=== PATIENT | female | born 1960 | race Caucasian/White ===

== ENCOUNTER 2016-10-22 05:31 | Emergency (ER) | payer MEDICARE ==
[~2016-10-22] VITALS: Ht 154.9 cm; Wt 61.4 kg
[~2016-10-22 05:31] MED LIST: ALBU8.5H2 INHALATION; CHOL10008 PO; CYAN500 PO; FLUT16SP NS; LORA0.5T PO; PARO20TA57 PO; PREG150C PO; TRAM50TA2 PO
[2016-10-22 05:33] VITALS: BP 119/88; PULSE 60; RESP 16; O2SAT 98
--- NOTE | 2016-10-22 06:20 | ED.REPORT ---
HPI-Abd Pain F 40 and Over Date of Service October 22, 2016 ED Provider: Azael Christiansen DO The pt is a 56 y/o female w/ a hx of hernia repairs presenting to the ED complaining of abdominal pain. She describes the pain as sharp and "pulling" and as someone "stabbing a hot knife and ripping down". The pt is also experiencing chest pain and dysuria. She also had a episode of syncope a month ago and was told by the ER she had high sodium levels and a HR of 47. 6 months ago her dog tripped her which caused an abscess of her hernia, which she was given antibiotics for. She also reports a parathyroid cyst which she states has caused hypercalcemia in the past. Denies nausea and vomiting. Nursing Notes Stated Complaint: ABDOMINAL PAIN Chief Complaint: Female Abdominal Pain Nursing Notes Reviewed: Yes Allergies: Coded Allergies: codeine (Verified Allergy, Intermediate, 05/10/15) latex (Verified Allergy, Intermediate, hives, 05/10/15) Scheduled Albuterol HFA (Proair HFA) 8.5 Gm Hfa.aer.ad 2 PUFFS INHALATION Q4H Cholecalciferol (Vitamin D3) (Vitamin D3) 1,000 Unit Tab.chew 1,000 UNIT PO DAILY Cyanocobalamin (Vitamin B12) 500 Mcg Tablet 1,000 MCG PO DAILY Fluticasone Propionate (Fluticasone Propionate Nasal) 16 Gm [place].susp 2 SPRAY NS BID Paroxetine (Paxil) 20 Mg Tablet 20 MG PO HS Pregabalin (Lyrica) 150 Mg Capsule 150 MG PO HS Sulfamethoxazole/Trimeth 800-160 mg (Bactrim DS 800-160 mg) 1 Each Tablet 1 TABLET PO BID Scheduled PRN Lorazepam (Lorazepam) 0.5 Mg Tablet 0.5 MG PO TID PRN PRN For Anxiety Naproxen (Naproxen) 500 Mg Tab 500 MG PO BID PRN PRN For Pain Tramadol (Tramadol) 50 Mg Tablet 50 MG PO BID PRN PRN For Pain General Time Seen by MD: 06:20 Chief Complaint Abdominal pain Hx Obtained From: Patient Arrived By: Walk-in Sudden in Onset?: Yes Location: : RLQ Quality: Painful Severity: Current: Mild Severity: Maximum: Mild Recent Healthcare: No recent doctor visit, No recent hospitalization Past Medical History Past Medical History Parathyroid cyst Dysphagia Asthma Diverticulitis IBS Arthritis Gastroesophageal reflux Depression Anxiety Past Surgical History Hernia surgery X2 Smoking History Light Tobacco Smoker, Never Smoker Ambulatory Status Independent Review of Systems Constitutional: Denies: Chills, Fever Cardiovascular: Reports: Chest pain GI: Reports: Abdominal pain, Nausea, Denies: Vomiting Female: Reports: Dysuria Complete sys rev & neg: except as marked. Physical Exam Vital Signs Vital Signs (First) Date Time Temp Pulse Resp B/P Pulse Ox O2 Delivery O2 Flow Rate FiO2 10/22/16 05:33 36.1 60 16 119/88 98 Room Air Initial VS: Reviewed Head / Eyes: Atraumatic, Normocephalic, PERRL ENT: Mucous membranes moist, Conjunctiva normal, No scleral icterus Neck: Supple, Non-tender, Full range of motion Extremities: Vascular intact, Neuro intact, No swelling, No tenderness Skin: Warm, Dry, No cyanosis Neurologic: Alert, Oriented, Nonfocal Psychiatric: Mood/affect normal, Behavior normal, Normal thought content General/Constitutional: Awake, Alert Respiratory / Chest: Breath sounds NL, Breath sounds = bilat, No respiratory distress, No rales, No rhonchi, No wheezing, No stridor Cardiovascular: Heart rate NL, Regular rhythm, Heart sounds NL, Peripheral circulation NL Abdomen: Soft, Non-tender, McBurney's non-tender, No guarding, No rebound, BS normoactive, No distention, No hernia, No palpable mass, No pulsatile mass Back: Inspection NL, Non-tender, No CVA tenderness Interpretation & Diagnostics Lab Results Interpretation Result Diagram: 10/22/16 0633 10/22/16 0633 Test 10/22/16 06:00 10/22/16 06:33 Hold Purple Top Tube Received (Received) Hold Blue Top Tube Received (Received) Urine Color Dark yellow (YELLOW) Urine Appearance Hazy (CLEAR,HAZY) Urine pH 5.5 (5.0-8.0) Urine Specific [place] 1.025 (1.003-1.035) Urine Protein Negativemg/dL (NEG,TRACE) Urine Glucose (UA) Negativemg/dL (NEGATIVE) Urine Ketones Tracemg/dL (NEGATIVE) Urine Occult Blood Trace (NEGATIVE) Urine Nitrite Negative (NEGATIVE) Urine Bilirubin Negative (NEGATIVE) Urine Urobilinogen 1.0mg/dL (NORMAL) Urine Leukocyte Esterase Moderate (NEGATIVE) Urine RBC 3-10/hpf (0-2) Urine WBC 11-50/hpf (0-5) Urine Epithelial Cells Few/hpf (NONE-MOD) Urine Crystals Oxalic acid crystals (NONE Urine Bacteria Moderate/hpf (NONE-FEW) Urine Hyaline Casts None/lpf (NONE) Urine Granular Casts None seen (NONE SEEN) Urine Waxy Casts None seen (NONE SEEN) Urine Red Blood Cell Casts None seen (NONE SEEN) Urine White Blood Cell Casts None seen (NONE SEEN) Urine Mucus Present (None Seen) Urine Trichomonas None seen (NONE SEEN) Urine Yeast None (NONE SEEN) Urinalysis Comment None Urine Culture Reflexed Indicated Hold [place] Top Tube Received (Received) White Blood Count 11.3th/mm3 (3.8-10.1) Red Blood Count 4.71mil/mm3 (3.90-5.20) Hemoglobin 14.8g/dL (12.0-15.6) Hematocrit 43.3% (35.0-46.0) Mean Corpuscular Volume 91.9fL (81-100) Mean Corpuscular Hemoglobin 31.4pg (27.0-35.0) Mean Corpuscular Hemoglobin Concent 34.2% (32.0-37.0) Red Cell Distribution Width 13.8% (12.3-15.4) Platelet Count 309bil/L (150-400) Neutrophils (%) (Auto) 68.5% (40-74) Lymphocytes (%) (Auto) 22.8% (14-46) Monocytes (%) (Auto) 6.6% (4-12) Eosinophils (%) (Auto) 1.3% (0-5) Basophils (%) (Auto) 0.6% (0-3) Sodium Level 143mEq/L (134-144) Potassium Level 4.1mEq/L (3.5-5.2) Chloride Level 106mEq/L (97-108) Carbon Dioxide Level 21mmol/L (18-29) Blood Urea Nitrogen 19mg/dL (6-24) Creatinine 0.73mg/dL (0.57-1.00) Estimat Glomerular Filtration Rate 119mL/min (>59) Glucose Level 111mg/dL (60-99) Calcium Level 9.8mg/dL (8.5-10.1) Magnesium Level 2.4mg/dL (1.6-2.6) Total Bilirubin 0.4mg/dL (0.0-1.2) Aspartate Amino Transf (AST/SGOT) 15U/L (0-50) Alanine Aminotransferase (ALT/SGPT) 9U/L (0-32) Alkaline Phosphatase 72U/L (25-150) Troponin T 0.010ug/L (0.0-0.011) Total Protein 7.0g/dL (6.4-8.4) Albumin 4.1g/dL (3.4-5.0) Lipase 21U/L (13-60) ECG Interpretation ECG Interpretation: Rate 65 Normal sinus rhythm Low voltage, precordial leads Time: 08:21 Interpreted by: ED physician Normal ECG Interpretation: No acute ischemic changes CT Abd / Pelvis Interpretation IMPRESSION: 1. No definite acute intra-abdominal abnormality. Specifically, no evidence of appendicitis, hydronephrosis, or abscess. 2. Diverticulosis without acute diverticulitis. Dictated by: Desmond Groves M.D. on 10/22/2016 at 8:07 Approved by: Desmond Groves M.D. on 10/22/2016 at 8:11 Study type: Abdominal CT IV contrast Interpretation / Wet Read by: Interpret - Radiologist Re-Eval/Medical Decision Med Decision/Clinical Course Patient has a whole host of varying complaints most concerning is right lower quadrant pain, CAT scan is unremarkable, she has chest pain that does not sound particularly related to acute coronary syndrome in her troponin and EKG is reassuring. She did state that her partner was also concurrently diagnosed with UTI, overall it sounds low risk and restarted on Bactrim. However, GC and Chlamydia was ordered. Given the overall low risk nature of this, treatment for sexual transmitted disease was not given. Strict return and follow-up precautions given Source of Hx: Old records Re-Evaluation/Progress : Time of Eval: 08:24 Re-Evaluation/Progress Note: Pt rechecked. Informed pt of diagnosis. Informed pt of plan for treatment. Pt understands and agrees with plan for treatment. F/U instructions and RTER warnings given. All questions addressed. Counseled Regarding: Diagnosis, Lab results, Need for follow-up, When/why to return to ED Discharge & Departure Primary Impression: UTI (urinary tract infection) Urinary tract infection type: site unspecified Hematuria presence: without hematuria Qualified Code: N39.0 - Urinary tract infection, site not specified Disposition: Home Discharge Condition All VS Reviewed: Yes Condition: Stable Additional Instructions: You have a urinary tract infection, the rest of your workup is reassuring. Take Bactrim for urinary tract infection and naproxen as needed for pain. Call your regular doctor in the morning for close follow-up. Return to ER as needed if worse. Referrals: Minna Lowery (PCP) Scribe Attestation Portions of this note were transcribed by John Billingsley and Augusto Herrera. I, Dr. Susy Mccabe personally performed the history, physical exam and medical decision- making; I reviewed and confirmed the accuracy of the information in the transcribed note. Signed by: Rito Santana, 10/22/16 and 0837. copies to: Minna Lowery Timothy S DO October 22, 2016 06:20 John Billingsley October 22, 2016 06:29 AUGUSTO HERRERA October 22, 2016 09:00
[2016-10-22 06:21] LABS: APPEARANCE,URINE HAZY (CLEAR,HAZY); COLOR,URINE DARK YELLOW (YELLOW); OCCULT BLOOD,URINE TRACE (NEGATIVE); PH,URINE 5.5 (5.0-8.0)
[2016-10-22] MEDS ORDERED: 0.9% Sodium Chloride 1,000 ML IV ONE (06:30)
[2016-10-22] MEDS ORDERED: Ketorolac 15 mg/mL Inj IVPUSH ONE (06:30)
[2016-10-22] MEDS ORDERED: Ondansetron 2 mg/mL 2 mL Inj IVPUSH PRN (06:30)
[2016-10-22 06:38] LABS: BASOPHILS % (AUTO) 0.6 % (0-3); EOSINOPHILS % (AUTO) 1.3 % (0-5); MONOCYTES % (AUTO) 6.6 % (4-12); Mean Corpuscular Hemoglobin 31.4 pg (27.0-35.0); Mean Corpuscular Volume 91.9 fL (81-100); NEUTROPHILS % (AUTO) 68.5 % (40-74); Platelet Count 309 bil/L (150-400)
[2016-10-22 06:48] LABS: TROPONIN T 0.01 ug/L (0.0-0.011)
[2016-10-22 07:01] LABS: Magnesium 2.4 mg/dL (1.6-2.6)
[2016-10-22 08:10] VITALS: BP 119/59; PULSE 70; RESP 10; O2SAT 99
[2016-10-22] MEDS ORDERED: oxyCODONE-Acetamin 5-325 mg Tablet PO ONE (08:15)
--- NOTE | 2016-10-22 08:18 | DRSVH ---
PROCEDURE: CT ABDOMEN AND PELVIS WITH CONTRAST ([id number]) INDICATIONS: Right-sided abdominal pain. TECHNIQUE: After the administration of oral and intravenous contrast, 5 mm thick sections acquired from the diap hragms to the symphysis. 5 mm thick coronal and sagittal reformats were performed. For radiation do se reduction, the following was used: automated exposure control, adjustment of mA and/or kV accordi ng to patient size. COMPARISON: None. FINDINGS: Image quality: Excellent. ABDOMEN: Lung bases: There is mild dependent atelectasis. Heart size is normal. Solid organs: Liver and spleen are normal in size and enhancement. Gallbladder appears within krista l limits without calcified gallstones. Biliary system is non-dilated. Pancreas enhances normally. No adrenal nodules. There are small hypodensities in the kidneys which are too small to characterize but likely represent cysts. No hydronephrosis. Peritoneum and bowel: Stomach, small bowel, and colon loops are normal in caliber and wall thickness . The appendix is normal in appearance. There is colonic diverticulosis without acute diverticuliti s. Bowel sutures are noted within the sigmoid colon. No free fluid or air. No abscess collection i s identified. Nodes and vessels: No retroperitoneal or mesenteric adenopathy. Aorta and inferior vena cava are no rmal in caliber. Miscellaneous: No ventral hernias. PELVIS: Genitourinary: Bladder wall thickness is normal. The uterus and ovaries appear within normal size l imits for age. Miscellaneous: No inguinal hernias or adenopathy. Bones: No suspicious bony lesions. No vertebral body compression fractures. IMPRESSION: 1. No definite acute intra-abdominal abnormality. Specifically, no evidence of appendicitis, hydron ephrosis, or abscess. 2. Diverticulosis without acute diverticulitis. Dictated by: Desmond Groves M.D. on 10/22/2016 at 8:07 Approved by: Desmond Groves M.D. on 10/22/2016 at 8:11
[2016-10-22] MEDS ORDERED: Trimethoprim-Sulfa 160 mg-800 mg Tablet PO ONE (08:25)
[2016-10-22] MEDS ORDERED: SULF1TAB35 PO (08:32)
[2016-10-22] MEDS ORDERED: NPR500T PO (08:32)
[2016-10-22 08:53] VITALS: BP 102/63; PULSE 66; RESP 18; O2SAT 100
== END 2016-10-22 08:51 | disposition home or self-care (01) ==
LOC: SED 05:31
DX: N39.0 Urinary tract infection, site not specified (principal); R07.9 Chest pain, unspecified; J45.909 Unspecified asthma, uncomplicated; F32.9 Major depressive disorder, single episode, unspecified; K21.9 Gastro-esophageal reflux disease without esophagitis; F41.9 Anxiety disorder, unspecified; Z88.5 Allergy status to narcotic agent; Z91.040 Latex allergy status
CPT/HCPCS: 36415; 74177; 80053; 81000; 81025; 83690; 83735; 84484; 85025; 87086; 87088; 87591; 93005; 96361; 96374; 96375; 99285; J1885; J2405; J7030; Q9967

== ENCOUNTER 2016-12-14 18:56 | Emergency (ER) | payer MEDICARE ==
[~2016-12-14] VITALS: Ht 154.9 cm; Wt 63.6 kg
[~2016-12-14 18:56] MED LIST changes: +NPR500T PO; +SULF1TAB35 PO
[2016-12-14 19:00] VITALS: BP 131/88; PULSE 89; RESP 20; O2SAT 97
--- NOTE | 2016-12-14 19:38 | ED.REPORT ---
HPI-General Illness Date of Service Dec 14, 2016 ED Provider: Kyree Galo MD The patient is a 56 year old female w/ a hx of chronic neck pain who presents to the ED w/ neck pain after a fall 2 days ago. She was turning a corner on a slick, hard-wood floor, when she slipped and landed hard on her left arm and left shoulder. Associated symptoms include difficulty with speech, dizziness, migraine, blurred vision, leg spasms, confusion, neck pain, and leg weakness. She denies vomiting and hitting her head. She has had issues with bowel control for the past 2 months, this is not a new symptom. Her PCP is Dr Tatyana Lowery. Nursing Notes Stated Complaint: FELL,ARM/NECK INJURY,LEG WEAKNESS Chief Complaint: General Complaint Nursing Notes Reviewed: Yes Allergies: Coded Allergies: codeine (Verified Allergy, Intermediate, 12/14/16) latex (Verified Allergy, Intermediate, hives, 12/14/16) Scheduled Albuterol HFA (Proair HFA) 8.5 Gm Hfa.aer.ad 2 PUFFS INHALATION Q4H Cholecalciferol (Vitamin D3) (Vitamin D3) 1,000 Unit Tab.chew 1,000 UNIT PO DAILY Cyanocobalamin (Vitamin B12) 500 Mcg Tablet 1,000 MCG PO DAILY Fluticasone Propionate (Fluticasone Propionate Nasal) 16 Gm [place].susp 2 SPRAY NS BID Methylprednisolone (Medrol) 21 Tab/Pkg Tablet 1 TAB PO UD Follow package instructions Paroxetine (Paxil) 20 Mg Tablet 20 MG PO HS Pregabalin (Lyrica) 150 Mg Capsule 150 MG PO HS Sulfamethoxazole/Trimeth 800-160 mg (Bactrim DS 800-160 mg) 1 Each Tablet 1 TABLET PO BID Scheduled PRN Lorazepam (Lorazepam) 0.5 Mg Tablet 0.5 MG PO TID PRN PRN For Anxiety Naproxen (Naproxen) 500 Mg Tab 500 MG PO BID PRN PRN For Pain Tramadol (Tramadol) 50 Mg Tablet 50 MG PO BID PRN PRN For Pain General Time Seen by MD: 19:30 Chief Complaint Other (neck pain) Hx Obtained From: Patient Arrived By: Walk-in Onset Occurred: 2 days ago Symptom Duration: Since onset Caused by: Accidental Context: Occurred at: Home injury Location: : Arm left: Neck Quality: Painful Severity: Current: Mild Recent Healthcare: No recent doctor visit, No recent hospitalization Similar Sx Previous: No Past Medical History Past Medical History Parathyroid cyst Dysphagia Asthma Diverticulitis IBS Arthritis Gastroesophageal reflux Depression Anxiety Past Surgical History Hernia surgery X2 Smoking History Light Tobacco Smoker, Never Smoker Ambulatory Status Independent Review of Systems Full Review of Systems GI: Reports: Nausea, Denies: Vomiting Musculoskeletal: Reports: Extremity pain, Neck pain Neurologic: Reports: Bowel dysfunction, Confusion, Dizziness, Headache, Slurred speech, Weakness, Denies: Bladder dysfunction, Change LOC Complete sys rev & neg: except as marked. Physical Exam Vital Signs Vital Signs Date Time Temp Pulse Resp B/P Pulse Ox O2 Delivery O2 Flow Rate FiO2 12/14/16 22:53 62 139/87 93 Room Air 12/14/16 21:13 75 116/71 95 Room Air 12/14/16 19:00 37.6 89 20 131/88 97 Room Air Initial VS: Reviewed General/Constitutional: Awake, Alert, Cooperative, Not toxic appearing Head / Eyes: Atraumatic, Normocephalic, PERRL, EOMI no tenderness in scalp Neck: No midline vertebral tend Respiratory / Chest: Atraumatic, Breath sounds NL, Breath sounds = bilat, No respiratory distress Cardiovascular: Heart rate NL, Regular rhythm, Heart sounds NL, No gallop, No murmurs, No rubs Abdomen: Atraumatic, Soft, Non-tender Upper Extremities Upper Extremity / MS: Full range of motion, No swelling, No deformity, Neurologic intact, Vascular intact slight weakness on right 5/5 strength Lower Extremity / Pelvis / MS: Atraumatic, Inspection NL, Full range of motion , No deformity, Neurologic intact, Vascular intact 5/5 strength bilaterally Skin: Atraumatic, Color NL, No rash Neurologic: Oriented X3, Speech NL, No sensory deficits, Reflexes equal bilat, Gait NL Interpretation & Diagnostics Lab Results Interpretation Test 12/14/16 23:02 Hold Urine Received (Received) CT Head Interpretation IMPRESSION: 1. No acute intracranial findings. Dictated by: Kenyatta Jara M.D. on 12/14/2016 at 20:42 Approved by: Kenyatta Jara M.D. on 12/14/2016 at 20:46 Study: Head CT no contrast Interpretation / Wet Read by: Interpret - Radiologist CT C-Spine Interpretation IMPRESSION: 1. No acute cervical spine injury. 2. Severe degenerative change of the cervical spine. 3. Moderate canal stenosis of lower lumbar spine. Dictated by: Kenyatta Jara M.D. on 12/14/2016 at 20:37 Approved by: Kenyatta Jara M.D. on 12/14/2016 at 20:41 Study type: CT no contrast Interpretation / Wet Read by: Interpret - Radiologist Re-Eval/Medical Decision Med Decision/Clinical Course 56-year-old female with cervical spinal stenosis reporting some subjective weakness and paresthesias following a ground-level fall. Also reports some difficulty with speech headaches and nausea. Neurologically she is intact, no now issues with bowel, bladder or saddle anesthesia, imaging is reassuring. Start her on a steroid taper and a soft collar. Time of Eval: 19:47 Re-Evaluation/Progress Note: Plan for soft collar and head CT. Counseled Regarding: Diagnosis, Lab results, Need for follow-up, When/why to return to ED Discharge & Departure Primary Impression: Cervical radiculopathy Additional Impression: Headache Disposition: Home Discharge Condition All VS Reviewed: Yes Condition: Stable Additional Instructions: Thank you for entrusting us with your care today. Emergency Department evaluation included interview, examination, labs, and head CT. There are no emergent causes for your symptoms. I am starting you on a dose of prednisone in the Emergency Room. I am sending you home with a tapering dose to continue at home as well as some Zofran for nausea. Get plenty of rest and ice your neck. Plan to follow up with primary care within the following week. Return to the Emergency Department if you experience any new or worsening symptoms. I hope you feel better soon! Referrals: Minna Lowery (PCP) [place] Attestation Portion of this note were transcribed by Ricarda Urbano. I, Dr. Galo, personally performed the history, physical exam, and medical decision-making: I reviewed and confirmed the accuracy for the information in the transcribed note. Signed by: mira Healy, 12/14/16 2100 copies to: Minna Lowery Donald L MD Dec 14, 2016 19:38 Ricarda Urbano Dec 14, 2016 19:45
--- NOTE | 2016-12-14 20:42 | DRSVH ---
PROCEDURE: CT CERVICAL SPINE WITHOUT CONTRAST ([id number]) INDICATIONS: fall with arm weakness TECHNIQUE: Noncontrast 3 mm thick sections acquired from the skull base to the T4 level. Sagittal and coronal r eformats were then constructed. For radiation dose reduction, the following was used: automated exp osure control, adjustment of mA and/or kV according to patient size. COMPARISON: None. FINDINGS: Image quality: Excellent. Bones: No acute fracture or dislocation. Severe degenerative changes are present throughout the cervi ronny spine including intervertebral disc space narrowing, endplate sclerosis, and osteophytosis. Moder ate canal stenosis is present at C5-6 and C6-C7 secondary to posterior disc osteophyte complexes. Soft tissues: Prevertebral soft tissues are normal in thickness. No paravertebral hematomas. No ap ical pneumothoraces. IMPRESSION: 1. No acute cervical spine injury. 2. Severe degenerative change of the cervical spine. 3. Moderate canal stenosis of lower lumbar spine. Dictated by: Kenyatta Jara M.D. on 12/14/2016 at 20:37 Approved by: Kenyatta Jara M.D. on 12/14/2016 at 20:41
--- NOTE | 2016-12-14 20:48 | DRSVH ---
PROCEDURE: CT BRAIN WITHOUT CONTRAST ([id number]) INDICATIONS: fall with arm weakness TECHNIQUE: Noncontrast 4.5 mm thick angled axial sections acquired from the foramen magnum to the vertex, with c oronal reformats. COMPARISON: None. FINDINGS: Image quality: Excellent. CSF spaces: Basal cisterns are patent. No extra-axial fluid collections. Ventricles are normal in size and shape. There is an incidentally noted posterior fossa arachnoid cyst. Brain: No midline shift. No intracranial masses or hemorrhage. [place]-white matter interface is norm al. Skull and face: Calvarium and visualized facial bones are intact, without suspicious lesions. Sinuses: Visualized sinuses and mastoids are clear. IMPRESSION: 1. No acute intracranial findings. Dictated by: Kenyatta Jara M.D. on 12/14/2016 at 20:42 Approved by: Kenyatta Jara M.D. on 12/14/2016 at 20:46
[2016-12-14 21:13] VITALS: BP 116/71; PULSE 75; O2SAT 95
[2016-12-14] MEDS ORDERED: _Ondansetron ODT 4 mg Tablet PO PRN (22:15)
[2016-12-14] MEDS ORDERED: predniSONE 20 mg Tablet PO ONE (22:15)
[2016-12-14] MEDS ORDERED: MTH4T PO (22:18)
[2016-12-14 22:53] VITALS: BP 139/87; PULSE 62; O2SAT 93
== END 2016-12-14 22:54 | disposition home or self-care (01) ==
LOC: SED 18:56
DX: M54.12 Radiculopathy, cervical region (principal); R51 Headache; W01.0XXA Fall on same level from slipping, tripping and stumbling without subsequent striking against object, initial encounter; Y93.9 Activity, unspecified; Y92.009 Unspecified place in unspecified non-institutional (private) residence as the place of occurrence of the external cause; Y99.9 Unspecified external cause status; K21.9 Gastro-esophageal reflux disease without esophagitis; F17.200 Nicotine dependence, unspecified, uncomplicated; Z79.899 Other long term (current) drug therapy; Z88.5 Allergy status to narcotic agent; Z91.040 Latex allergy status

== ENCOUNTER 2017-03-03 11:27 | Emergency (ER) | payer MEDICARE ==
[~2017-03-03] VITALS: Ht 154.9 cm; Wt 61.4 kg
[~2017-03-03 11:27] MED LIST changes: +MTH4T PO
[2017-03-03 11:38] VITALS: BP 152/94; PULSE 85; RESP 16; O2SAT 95
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
[2017-03-03 13:54] VITALS: BP 120/76; RESP 16; O2SAT 97
== END 2017-03-03 13:55 | disposition home or self-care (01) ==
LOC: SED 11:27
DX: M54.2 Cervicalgia (principal); M79.641 Pain in right hand; Y02.0XXA Assault by pushing or placing victim in front of motor vehicle, initial encounter; Y07.03 Male partner, perpetrator of maltreatment and neglect; Y93.9 Activity, unspecified; Y92.410 Unspecified street and highway as the place of occurrence of the external cause; Y99.8 Other external cause status; K21.9 Gastro-esophageal reflux disease without esophagitis; F17.200 Nicotine dependence, unspecified, uncomplicated; Z88.2 Allergy status to sulfonamides; Z88.5 Allergy status to narcotic agent; Z91.040 Latex allergy status
CPT/HCPCS: 70450; 72040; 73130; 90791; 96372; 99284; J1885